=== PATIENT | male | born 1950 | race Hispanic/Latino ===

== ENCOUNTER 2020-10-30 10:13 | Inpatient (IN) | payer MEDICARE ==
[~2020-10-30] VITALS: Ht 175.3 cm; Wt 90.7 kg
[2020-10-30] MEDS ORDERED: PIPERACILLIN/TAZO 4.5 GM 100 ML IV STA (10:29)
[2020-10-30] MEDS ORDERED: SODIUM CHLORIDE 0.9% 1000ML 2,100 ML IV SCH (10:30)
[2020-10-30 10:58] LABS: BASOPHILS # (AUTO) 0.1 (0.0-0.1); BASOPHILS % 0.4 % (0.0-1.0); HEMATOCRIT 41.6 % (38.2-49.6); HEMOGLOBIN 14.1 g/dL (14.0-18.0); LYMPHOCYTES # (AUTO) 1.7 (1.0-3.2); LYMPHOCYTES % 5.2 % (18.0-39.1); MEAN CORPUSCULAR HEMOGLOBIN 31.1 pg (28-32); MEAN CORPUSCULAR HGB CONC 33.9 g/dL (31-35); MEAN CORPUSCULAR VOLUME 91.6 fL (81-99); MONOCYTES # (AUTO) 2.1 (0.2-0.8); MONOCYTES % 6.6 % (4.4-11.3); NEUTROPHILS # (AUTO) 26.6 (2.1-6.9); NEUTROPHILS % 82.6 % (38.7-80.0); PLATELET COUNT 237 x10e3/uL (140-360); RED BLOOD COUNT 4.54 x10e6/uL (4.3-5.7); RED CELL DISTRIBUTION WIDTH 13.4 % (11.7-14.4)
[2020-10-30 11:15] LABS: ALBUMIN 3.7 g/dL (3.5-5.0); ALBUMIN/GLOBULIN RATIO 1.4 (0.8-2.0); ANION GAP 17.4 mmol/L (8-16); CALCIUM 9.2 mg/dL (8.4-10.2); CREATININE, SERUM 1.46 mg/dL (0.72-1.25); POTASSIUM 4.4 mmol/L (3.5-5.1)
[2020-10-30] MEDS: ACETAMINOPHEN 325 MG TAB PO PRN ×2 (12:12→21:37)
[2020-10-30 14:45] VITALS: BP 128/71
[2020-10-30 14:56] VITALS: BP 128/71
[2020-10-30] MEDS ORDERED: DEXTROSE 50% SYRINGE 50 ML IV PRN (17:15)
[2020-10-30] MEDS: INSULIN REGULAR, HUMAN 100 UNIT/1 ML SQ SCH ×2 (17:30→21:49)
[2020-10-30] MEDS ORDERED: REPAGLINIDE2 MG PO (18:40)
[2020-10-30] MEDS ORDERED: PROTONIX20 MG PO (18:45)
[2020-10-30] MEDS ORDERED: IRBESARTAN150 MG PO (18:45)
[2020-10-30] MEDS ORDERED: FINASTERIDE5 MG PO (18:45)
[2020-10-30] MEDS ORDERED: METFORMIN HCL500 MG PO (18:45)
[2020-10-30] MEDS ORDERED: AMLODIPINE BESY10 MG PO (18:45)
[2020-10-30] MEDS ORDERED: GABAPENTIN400 MG PO (18:45)
[2020-10-30] MEDS ORDERED: DOXAZOSIN MESYLA2 MG PO (18:45)
[2020-10-30] MEDS ORDERED: ZETIA10 MG PO (18:45)
[2020-10-30 19:55] VITALS: BP 145/84
[2020-10-30 20:26] VITALS: BP 145/84
[2020-10-30] MEDS ORDERED: ACETAMINOPHEN 325 MG TAB ONE (21:34)
[2020-10-30 23:58] VITALS: BP 117/75
[2020-10-31] VITALS (7 sets, daily range): BP systolic 129–142; BP diastolic 69–85
[2020-10-31] MEDS: INSULIN REGULAR, HUMAN 100 UNIT/1 ML SQ SCH ×4 (07:30→21:27)
[2020-10-31] MEDS: ACETAMINOPHEN 325 MG TAB PO PRN (09:45)
[2020-10-31] MEDS: PANTOPRAZOLE SOD 40 MG TABEC PO SCH (11:00)
[2020-10-31] MEDS: FINASTERIDE 5 MG TAB PO SCH (11:00)
[2020-10-31] MEDS: PIPERACILLIN/TAZOBACTAM 3.375 GM in SODIUM CHLORIDE 0.9% 50ML 50 ML IV SCH ×3 (11:00→22:52)
[2020-10-31] MEDS: EZETIMIBE 10 MG TAB PO SCH (11:00)
[2020-10-31] MEDS: AMLODIPINE BESYLATE 10 MG TAB PO SCH (11:00)
[2020-10-31] MEDS: SODIUM CHLORIDE 0.9% 1000ML 1,000 ML IV SCH ×2 (11:20→21:28)
[2020-10-31] MEDS: GABAPENTIN 300 MG CAP PO SCH (12:15)
[2020-10-31] MEDS: METFORMIN HCL 500 MG TAB PO SCH (17:00)
[2020-10-31] MEDS: PHENAZOPYRIDINE HCL 100 MG TAB PO PRN ×2 (17:10→21:33)
[2020-10-31] MEDS: IRBESARTAN 150 MG TAB PO SCH (21:26)
[2020-10-31] MEDS: DOXAZOSIN MESYLATE 2 MG TAB PO SCH (21:27)
[2020-11-01] VITALS: BP 151/88
[2020-11-01 04:00] VITALS: BP 139/82
[2020-11-01] MEDS: PIPERACILLIN/TAZOBACTAM 3.375 GM in SODIUM CHLORIDE 0.9% 50ML 50 ML IV SCH ×4 (05:32→23:37)
[2020-11-01] MEDS: PHENAZOPYRIDINE HCL 100 MG TAB PO PRN ×2 (05:36→23:42)
[2020-11-01 06:14] LABS: BASOPHILS # (AUTO) 0.1 (0.0-0.1); BASOPHILS % 0.4 % (0.0-1.0); EOSINOPHILS # (AUTO) 0.2 (0.0-0.4); EOSINOPHILS % 1.1 % (0.0-6.0); HEMATOCRIT 36.6 % (38.2-49.6); HEMOGLOBIN 12.3 g/dL (14.0-18.0); LYMPHOCYTES # (AUTO) 1.7 (1.0-3.2); LYMPHOCYTES % 8.7 % (18.0-39.1); MEAN CORPUSCULAR HEMOGLOBIN 31.1 pg (28-32); MEAN CORPUSCULAR HGB CONC 33.6 g/dL (31-35); MEAN CORPUSCULAR VOLUME 92.4 fL (81-99); MONOCYTES # (AUTO) 0.9 (0.2-0.8); MONOCYTES % 4.6 % (4.4-11.3); NEUTROPHILS # (AUTO) 16.6 (2.1-6.9); PLATELET COUNT 211 x10e3/uL (140-360); RED BLOOD COUNT 3.96 x10e6/uL (4.3-5.7); RED CELL DISTRIBUTION WIDTH 13.6 % (11.7-14.4)
[2020-11-01 06:36] LABS: ANION GAP 14.9 mmol/L (8-16); CALCIUM 8.9 mg/dL (8.4-10.2); CREATININE, SERUM 1.04 mg/dL (0.72-1.25); POTASSIUM 3.9 mmol/L (3.5-5.1)
[2020-11-01] MEDS: SODIUM CHLORIDE 0.9% 1000ML 1,000 ML IV SCH ×2 (07:00→20:52)
[2020-11-01] MEDS: PANTOPRAZOLE SOD 40 MG TABEC PO SCH (07:30)
[2020-11-01] MEDS: INSULIN REGULAR, HUMAN 100 UNIT/1 ML SQ SCH ×4 (07:30→20:44)
[2020-11-01] MEDS: METFORMIN HCL 500 MG TAB PO SCH ×2 (08:00→17:00)
[2020-11-01 08:50] VITALS: BP 140/78
[2020-11-01] MEDS: EZETIMIBE 10 MG TAB PO SCH (09:00)
[2020-11-01] MEDS: FINASTERIDE 5 MG TAB PO SCH (09:00)
[2020-11-01] MEDS: AMLODIPINE BESYLATE 10 MG TAB PO SCH (09:00)
[2020-11-01] MEDS: ACETAMINOPHEN 325 MG TAB PO PRN ×2 (10:20→20:55)
[2020-11-01 16:17] VITALS: BP 125/71
[2020-11-01 20:00] VITALS: BP 131/70
[2020-11-01] MEDS: DOXAZOSIN MESYLATE 2 MG TAB PO SCH (20:54)
[2020-11-01] MEDS: IRBESARTAN 150 MG TAB PO SCH (20:54)
[2020-11-01] MEDS: GABAPENTIN 300 MG CAP PO SCH (20:55)
[2020-11-01 21:00] VITALS: BP 131/70
[2020-11-02] VITALS (9 sets, daily range): BP systolic 121–177; BP diastolic 64–86
[2020-11-02] MEDS: PIPERACILLIN/TAZOBACTAM 3.375 GM in SODIUM CHLORIDE 0.9% 50ML 50 ML IV SCH ×4 (05:47→23:05)
[2020-11-02] MEDS: PANTOPRAZOLE SOD 40 MG TABEC PO SCH ×2 (05:47→09:58)
[2020-11-02] MEDS: SODIUM CHLORIDE 0.9% 1000ML 1,000 ML IV SCH ×3 (05:47→23:05)
[2020-11-02] MEDS: EZETIMIBE 10 MG TAB PO SCH (09:54)
[2020-11-02] MEDS: FINASTERIDE 5 MG TAB PO SCH (09:54)
[2020-11-02] MEDS: AMLODIPINE BESYLATE 10 MG TAB PO SCH (09:54)
[2020-11-02] MEDS: METFORMIN HCL 500 MG TAB PO SCH ×2 (09:58→17:08)
[2020-11-02] MEDS: INSULIN REGULAR, HUMAN 100 UNIT/1 ML SQ SCH ×4 (10:01→21:15)
[2020-11-02] MEDS: ACETAMINOPHEN 325 MG TAB PO PRN ×2 (10:11→23:10)
[2020-11-02] MEDS: PHENAZOPYRIDINE HCL 100 MG TAB PO PRN (10:40)
[2020-11-02 14:45] LABS: BASOPHILS # (AUTO) 0.1 (0.0-0.1); BASOPHILS % 0.9 % (0.0-1.0); EOSINOPHILS # (AUTO) 0.3 (0.0-0.4); EOSINOPHILS % 3.4 % (0.0-6.0); HEMATOCRIT 37.6 % (38.2-49.6); HEMOGLOBIN 12.5 g/dL (14.0-18.0); LYMPHOCYTES # (AUTO) 1.3 (1.0-3.2); LYMPHOCYTES % 16.1 % (18.0-39.1); MEAN CORPUSCULAR HGB CONC 33.2 g/dL (31-35); MEAN CORPUSCULAR VOLUME 93.3 fL (81-99); MONOCYTES # (AUTO) 0.7 (0.2-0.8); NEUTROPHILS # (AUTO) 5.5 (2.1-6.9); NEUTROPHILS % 70.1 % (38.7-80.0); PLATELET COUNT 229 x10e3/uL (140-360); RED BLOOD COUNT 4.03 x10e6/uL (4.3-5.7); RED CELL DISTRIBUTION WIDTH 13.9 % (11.7-14.4)
[2020-11-02] MEDS: GABAPENTIN 300 MG CAP PO SCH (21:15)
[2020-11-02] MEDS: IRBESARTAN 150 MG TAB PO SCH (21:15)
[2020-11-02] MEDS: DOXAZOSIN MESYLATE 2 MG TAB PO SCH (21:15)
[2020-11-03] VITALS: BP 152/93
[2020-11-03 04:00] VITALS: BP 146/85
[2020-11-03] MEDS: PIPERACILLIN/TAZOBACTAM 3.375 GM in SODIUM CHLORIDE 0.9% 50ML 50 ML IV SCH ×2 (05:00→11:00)
[2020-11-03 05:34] LABS: BASOPHILS % 0.6 % (0.0-1.0); EOSINOPHILS # (AUTO) 0.3 (0.0-0.4); EOSINOPHILS % 4.5 % (0.0-6.0); HEMATOCRIT 34.9 % (38.2-49.6); HEMOGLOBIN 11.7 g/dL (14.0-18.0); LYMPHOCYTES # (AUTO) 1.6 (1.0-3.2); LYMPHOCYTES % 24.6 % (18.0-39.1); MEAN CORPUSCULAR HEMOGLOBIN 31.1 pg (28-32); MEAN CORPUSCULAR HGB CONC 33.5 g/dL (31-35); MEAN CORPUSCULAR VOLUME 92.8 fL (81-99); MONOCYTES # (AUTO) 0.7 (0.2-0.8); MONOCYTES % 10.5 % (4.4-11.3); NEUTROPHILS # (AUTO) 3.8 (2.1-6.9); PLATELET COUNT 250 x10e3/uL (140-360); RED BLOOD COUNT 3.76 x10e6/uL (4.3-5.7); RED CELL DISTRIBUTION WIDTH 13.6 % (11.7-14.4)
[2020-11-03 06:25] LABS: ANION GAP 13.8 mmol/L (8-16); CALCIUM 8.9 mg/dL (8.4-10.2); CREATININE, SERUM 1.08 mg/dL (0.72-1.25); POTASSIUM 3.8 mmol/L (3.5-5.1)
[2020-11-03] MEDS: PHENAZOPYRIDINE HCL 100 MG TAB PO PRN (07:51)
[2020-11-03] MEDS: AMLODIPINE BESYLATE 10 MG TAB PO SCH ×3 (08:08→09:10)
[2020-11-03] MEDS: EZETIMIBE 10 MG TAB PO SCH (08:08)
[2020-11-03] MEDS: FINASTERIDE 5 MG TAB PO SCH (08:08)
[2020-11-03] MEDS: METFORMIN HCL 500 MG TAB PO SCH (08:08)
[2020-11-03 08:11] VITALS: BP 156/92
[2020-11-03] MEDS: INSULIN REGULAR, HUMAN 100 UNIT/1 ML SQ SCH ×2 (08:26→11:34)
[2020-11-03 09:22] VITALS: BP 156/92
[2020-11-03 09:28] VITALS: BP 156/92
[2020-11-03] MEDS: SODIUM CHLORIDE 0.9% 1000ML 1,000 ML IV SCH (10:04)
[2020-11-03] MEDS ORDERED: CIPRO250 MG PO (11:53)
[2020-11-03 11:59] VITALS: BP 150/86
== END 2020-11-03 15:07 | disposition home or self-care (01) | DRG 872 ==
LOC: ER 10:19 → ERHOLD 12:50 → MED/SURG3 14:35
DX: A41.9 Sepsis, unspecified organism (principal); N39.0 Urinary tract infection, site not specified; K21.9 Gastro-esophageal reflux disease without esophagitis; R65.20 Severe sepsis without septic shock; Z88.1 Allergy status to other antibiotic agents; Z88.8 Allergy status to other drugs, medicaments and biological substances; E11.22 Type 2 diabetes mellitus with diabetic chronic kidney disease; N18.9 Chronic kidney disease, unspecified; N40.1 Benign prostatic hyperplasia with lower urinary tract symptoms; N39.498 Other specified urinary incontinence; I12.9 Hypertensive chronic kidney disease with stage 1 through stage 4 chronic kidney disease, or unspecified chronic kidney disease; N28.1 Cyst of kidney, acquired; E66.9 Obesity, unspecified; Z68.29 Body mass index [BMI] 29.0-29.9, adult; N41.1 Chronic prostatitis; R35.1 Nocturia; K43.9 Ventral hernia without obstruction or gangrene; B96.5 Pseudomonas (aeruginosa) (mallei) (pseudomallei) as the cause of diseases classified elsewhere; D64.9 Anemia, unspecified; Z20.822 Contact with and (suspected) exposure to COVID-19; Z79.84 Long term (current) use of oral hypoglycemic drugs
CPT/HCPCS: 36415; 74176; 80048; 80053; 82948; 83605; 85025; 87040; 87086; 87186; 96360; 96361; 96365; 96372; 99251; 99284; J1817; J2543; J7030; U0002

== ENCOUNTER 2021-01-28 08:28 | Inpatient (IN) | payer MEDICARE ==
[2021-01-26 11:32] LABS: BASOPHILS # (AUTO) 0.1 (0.0-0.1); BASOPHILS % 1.3 % (0.0-1.0); EOSINOPHILS # (AUTO) 0.2 (0.0-0.4); EOSINOPHILS % 3.6 % (0.0-6.0); HEMATOCRIT 40.1 % (38.2-49.6); HEMOGLOBIN 13.2 g/dL (14.0-18.0); LYMPHOCYTES # (AUTO) 2.2 (1.0-3.2); LYMPHOCYTES % 35.1 % (18.0-39.1); MEAN CORPUSCULAR HGB CONC 32.9 g/dL (31-35); MEAN CORPUSCULAR VOLUME 94.1 fL (81-99); MONOCYTES # (AUTO) 0.5 (0.2-0.8); MONOCYTES % 7.3 % (4.4-11.3); NEUTROPHILS # (AUTO) 3.2 (2.1-6.9); NEUTROPHILS % 52.2 % (38.7-80.0); PLATELET COUNT 236 x10e3/uL (140-360); RED BLOOD COUNT 4.26 x10e6/uL (4.3-5.7); RED CELL DISTRIBUTION WIDTH 13.4 % (11.7-14.4)
[2021-01-26 12:06] LABS: ALBUMIN 3.8 g/dL (3.5-5.0); ALBUMIN/GLOBULIN RATIO 1.2 (0.8-2.0); ANION GAP 14.4 mmol/L (8-16); CALCIUM 9.5 mg/dL (8.4-10.2); CREATININE, SERUM 1.19 mg/dL (0.72-1.25); POTASSIUM 4.4 mmol/L (3.5-5.1)
[~2021-01-28] VITALS: Ht 175.3 cm; Wt 90.3 kg
[2021-01-28] VITALS (9 sets, daily range): BP systolic 116–167; BP diastolic 62–77
[~2021-01-28 08:28] MED LIST: AMLODIPINE BESY10 MG PO; CIPRO250 MG PO; DOXAZOSIN MESYLA2 MG PO; FINASTERIDE5 MG PO; GABAPENTIN400 MG PO; IRBESARTAN150 MG PO; LANTUS 3ML100 UNITS/ SC; MECLIZINE HCL12.5 MG PO; MELOXICAM7.5 MG PO; METFORMIN HCL500 MG PO; PROTONIX20 MG PO; REPAGLINIDE2 MG PO; ZETIA10 MG PO
[2021-01-28] MEDS ORDERED: SINGULAIR10 MG PO (08:44)
[2021-01-28] MEDS ORDERED: CIALIS2.5 MG PO (08:44)
[2021-01-28] MEDS ORDERED: LEVOFLOXACIN 500MG/D5W 100ML 100 ML IV ONE (08:49)
[2021-01-28] MEDS ORDERED: GENTAMICIN 80MG/NS 100 ML 100 ML IV ONE ×2 (08:49→09:07)
[2021-01-28] MEDS ORDERED: SODIUM CHLORIDE 0.9% 1000ML 1,000 ML ONE (08:50)
[2021-01-28] MEDS ORDERED: B&O 60MG R/S 60 MG SUPP PR ONE (09:23)
[2021-01-28] MEDS ORDERED: IOPAMIDOL 300MG/ML 50ML INFUS..BTL IV ONE (09:24)
[2021-01-28] MEDS ORDERED: FAMOTIDINE 20 MG/2 ML VIAL IV ONE (09:28)
[2021-01-28] MEDS ORDERED: PHENAZOPYRIDINE HCL 100 MG TAB PO PRN (11:30)
[2021-01-28] MEDS ORDERED: DIPHENHYDRAMINE HCL 25 MG CAP PO PRN (11:30)
[2021-01-28] MEDS ORDERED: B&O 60MG R/S 60 MG SUPP PR PRN (11:30)
[2021-01-28] MEDS ORDERED: SOD CHL 0.45%/POT CHL 20MEQ 1,000 ML IV SCH (11:30)
[2021-01-28] MEDS ORDERED: ONDANSETRON HCL INJ 2MG/ML 2ML 2 MG/ML VIAL IV PRN (11:30)
[2021-01-28 11:54] LABS: BASOPHILS # (AUTO) 0.1 (0.0-0.1); BASOPHILS % 0.9 % (0.0-1.0); EOSINOPHILS # (AUTO) 0.1 (0.0-0.4); EOSINOPHILS % 2.4 % (0.0-6.0); HEMATOCRIT 38.4 % (38.2-49.6); HEMOGLOBIN 12.5 g/dL (14.0-18.0); LYMPHOCYTES # (AUTO) 2.1 (1.0-3.2); LYMPHOCYTES % 36.5 % (18.0-39.1); MEAN CORPUSCULAR HEMOGLOBIN 30.8 pg (28-32); MEAN CORPUSCULAR HGB CONC 32.6 g/dL (31-35); MEAN CORPUSCULAR VOLUME 94.6 fL (81-99); MONOCYTES # (AUTO) 0.4 (0.2-0.8); MONOCYTES % 7.2 % (4.4-11.3); NEUTROPHILS # (AUTO) 3.1 (2.1-6.9); NEUTROPHILS % 52.5 % (38.7-80.0); PLATELET COUNT 232 x10e3/uL (140-360); RED BLOOD COUNT 4.06 x10e6/uL (4.3-5.7); RED CELL DISTRIBUTION WIDTH 13.4 % (11.7-14.4)
[2021-01-28] MEDS: ACETAMINOPHEN 1000 MG/100 ML IV PRN (12:00)
[2021-01-28] MEDS ORDERED: KETOROLAC TROMETHAMINE 30 MG/ML VIAL ONE (12:07)
[2021-01-28 12:20] LABS: ANION GAP 13.3 mmol/L (8-16); CALCIUM 8.3 mg/dL (8.4-10.2); CREATININE, SERUM 1.29 mg/dL (0.72-1.25); POTASSIUM 5.3 mmol/L (3.5-5.1)
[2021-01-28] MEDS ORDERED: ONDANSETRON HCL INJ 2MG/ML 2ML 2 MG/ML VIAL ONE (13:16)
[2021-01-28] MEDS ORDERED: LIDOCAINE HCL 2% LOCAL INJ 5 ML SDV VIAL INJ ONE (13:16)
[2021-01-28] MEDS ORDERED: SEVOFLURANE INHAL SOLN 250 ML PEN BTL ONE (13:16)
[2021-01-28] MEDS ORDERED: PROPOFOL IV EMULSION 10 MG/ML 20 ML VIAL ONE (13:16)
[2021-01-28] MEDS ORDERED: POVIDONE IODINE 0.05% 0.05 % ML PO ONE (13:16)
[2021-01-28] MEDS ORDERED: NEURONTIN300 MG PO (15:59)
[2021-01-28] MEDS ORDERED: DEXTROSE 50% SYRINGE 50 ML IV PRN (16:30)
[2021-01-28] MEDS: INSULIN LISPRO 100 UNIT/1 ML 3ML VIAL SQ SCH ×2 (17:14→22:03)
[2021-01-28] MEDS: DOCUSATE SODIUM 100 MG CAP PO SCH (17:14)
[2021-01-28] MEDS: SODIUM CHLORIDE 0.45% 1,000 ML IV SCH (17:14)
[2021-01-28] MEDS: REPAGLINIDE 1 MG TAB PO SCH (17:14)
[2021-01-28] MEDS ORDERED: FENTANYL CITRATE/PF 100MCG/2 ML INJ ONE (18:13)
[2021-01-28] MEDS ORDERED: REPAGLINIDE PO SCH (21:00)
[2021-01-28] MEDS ORDERED: INSULIN GLARGINE SC SCH (21:00)
[2021-01-28] MEDS: DOXAZOSIN MESYLATE 2 MG TAB PO SCH (22:01)
[2021-01-28] MEDS: INSULIN GLARGINE 100 UNITS/ML VIAL SQ SCH (22:02)
[2021-01-28] MEDS: ACETAMINOPHEN/CODEINE 300MG - 30MG TAB PO PRN (22:14)
[2021-01-29] VITALS (7 sets, daily range): BP systolic 126–148; BP diastolic 48–89
[2021-01-29 05:47] LABS: BASOPHILS # (AUTO) 0.1 (0.0-0.1); BASOPHILS % 0.8 % (0.0-1.0); EOSINOPHILS # (AUTO) 0.4 (0.0-0.4); EOSINOPHILS % 4.2 % (0.0-6.0); HEMOGLOBIN 12.4 g/dL (14.0-18.0); LYMPHOCYTES # (AUTO) 1.7 (1.0-3.2); LYMPHOCYTES % 17.9 % (18.0-39.1); MEAN CORPUSCULAR HGB CONC 32.6 g/dL (31-35); MONOCYTES # (AUTO) 0.9 (0.2-0.8); MONOCYTES % 9.3 % (4.4-11.3); NEUTROPHILS # (AUTO) 6.4 (2.1-6.9); NEUTROPHILS % 67.5 % (38.7-80.0); PLATELET COUNT 229 x10e3/uL (140-360); RED CELL DISTRIBUTION WIDTH 13.4 % (11.7-14.4)
[2021-01-29] MEDS: SODIUM CHLORIDE 0.45% 1,000 ML IV SCH ×2 (06:09→20:33)
[2021-01-29] MEDS: ACETAMINOPHEN 1000 MG/100 ML IV PRN (06:10)
[2021-01-29 06:11] LABS: CALCIUM 8.3 mg/dL (8.4-10.2); CREATININE, SERUM 1.15 mg/dL (0.72-1.25)
[2021-01-29] MEDS: INSULIN LISPRO 100 UNIT/1 ML 3ML VIAL SQ SCH ×4 (07:05→20:24)
[2021-01-29] MEDS: PANTOPRAZOLE SOD 40 MG TABEC PO SCH (08:03)
[2021-01-29] MEDS: REPAGLINIDE 1 MG TAB PO SCH ×3 (08:07→16:45)
[2021-01-29] MEDS: LEVOFLOXACIN 500MG/D5W 100ML 100 ML IV SCH (08:45)
[2021-01-29] MEDS: DOCUSATE SODIUM 100 MG CAP PO SCH ×2 (08:46→16:45)
[2021-01-29] MEDS ORDERED: ONDANSETRON HCL 4 MG ORAL DISINTEGRATING TAB PO PRN (10:45)
[2021-01-29] MEDS: ACETAMINOPHEN/CODEINE 300MG - 30MG TAB PO PRN (18:56)
[2021-01-29] MEDS: INSULIN GLARGINE 100 UNITS/ML VIAL SQ SCH (20:24)
[2021-01-29] MEDS: DOXAZOSIN MESYLATE 2 MG TAB PO SCH (20:25)
[2021-01-30] VITALS (8 sets, daily range): BP systolic 128–159; BP diastolic 69–91
[2021-01-30 04:56] LABS: BASOPHILS # (AUTO) 0.1 (0.0-0.1); BASOPHILS % 0.6 % (0.0-1.0); EOSINOPHILS # (AUTO) 0.7 (0.0-0.4); EOSINOPHILS % 8.1 % (0.0-6.0); HEMATOCRIT 38.1 % (38.2-49.6); HEMOGLOBIN 12.5 g/dL (14.0-18.0); LYMPHOCYTES # (AUTO) 2.1 (1.0-3.2); LYMPHOCYTES % 23.7 % (18.0-39.1); MEAN CORPUSCULAR HEMOGLOBIN 30.8 pg (28-32); MEAN CORPUSCULAR HGB CONC 32.8 g/dL (31-35); MEAN CORPUSCULAR VOLUME 93.8 fL (81-99); MONOCYTES # (AUTO) 0.9 (0.2-0.8); MONOCYTES % 10.7 % (4.4-11.3); NEUTROPHILS % 56.7 % (38.7-80.0); PLATELET COUNT 231 x10e3/uL (140-360); RED BLOOD COUNT 4.06 x10e6/uL (4.3-5.7); RED CELL DISTRIBUTION WIDTH 13.4 % (11.7-14.4)
[2021-01-30 05:16] LABS: ANION GAP 10.8 mmol/L (8-16); CALCIUM 8.8 mg/dL (8.4-10.2); CREATININE, SERUM 1.15 mg/dL (0.72-1.25); POTASSIUM 3.8 mmol/L (3.5-5.1)
[2021-01-30] MEDS: INSULIN LISPRO 100 UNIT/1 ML 3ML VIAL SQ SCH ×4 (07:30→21:10)
[2021-01-30] MEDS: REPAGLINIDE 1 MG TAB PO SCH ×3 (10:03→17:06)
[2021-01-30] MEDS: DOCUSATE SODIUM 100 MG CAP PO SCH ×2 (10:04→17:05)
[2021-01-30] MEDS: PANTOPRAZOLE SOD 40 MG TABEC PO SCH (10:04)
[2021-01-30] MEDS: LEVOFLOXACIN 500MG/D5W 100ML 100 ML IV SCH (10:04)
[2021-01-30] MEDS: DOXAZOSIN MESYLATE 2 MG TAB PO SCH (21:08)
[2021-01-30] MEDS: INSULIN GLARGINE 100 UNITS/ML VIAL SQ SCH (21:11)
[2021-01-31] MEDS ORDERED: LEVOFLOXACIN 500 MG TAB PO SCH (09:00)
== END 2021-01-30 21:52 | disposition home or self-care (01) | DRG 713 ==
LOC: OR 08:28 → PACU V 11:27 → MED/SURG 12:15
PROVIDERS: ADMIT Internal Medicine; ATTEND Internal Medicine
PROC: BT141ZZ Fluoroscopy of Kidneys, Ureters and Bladder using Low Osmolar Contrast (ICD-10-PCS; 2021-01-28)
PROC: 0T788ZZ Dilation of Bilateral Ureters, Via Natural or Artificial Opening Endoscopic (ICD-10-PCS; 2021-01-28)
PROC: 0V508ZZ Destruction of Prostate, Via Natural or Artificial Opening Endoscopic (ICD-10-PCS; principal; 2021-01-28 09:00)
PROC: 0T7D8ZZ Dilation of Urethra, Via Natural or Artificial Opening Endoscopic (ICD-10-PCS; 2021-01-28 09:00)
DX: N40.1 Benign prostatic hyperplasia with lower urinary tract symptoms (principal); N39.0 Urinary tract infection, site not specified; N13.8 Other obstructive and reflux uropathy; R39.14 Feeling of incomplete bladder emptying; R35.1 Nocturia; N35.912 Unspecified bulbous urethral stricture, male; N32.3 Diverticulum of bladder; Z20.822 Contact with and (suspected) exposure to COVID-19; E11.9 Type 2 diabetes mellitus without complications; M79.7 Fibromyalgia; E11.40 Type 2 diabetes mellitus with diabetic neuropathy, unspecified; I25.10 Atherosclerotic heart disease of native coronary artery without angina pectoris; N52.9 Male erectile dysfunction, unspecified; N28.1 Cyst of kidney, acquired
CPT/HCPCS: 36415; 71046; 74420; 80048; 80053; 82948; 83735; 85025; 93005; 94799; C1758; J1580; J1815; J1885; J1956; J2001; J2405; J3010; J7030; U0002